=== PATIENT | female | born 1955 | race Two or more races ===

== ENCOUNTER 2025-05-08 17:55 | Emergency (ER) | payer OTHER ==
[~2025-05-08] VITALS: Ht 154.9 cm; Wt 52.2 kg
[2025-05-08] MEDS ORDERED: ARBLI10 MG/1 ML PO (18:32)
[2025-05-08] MEDS ORDERED: METFORMIN HCL500 M3 PO (18:32)
[2025-05-08] MEDS ORDERED: CRESTOR40 MG PO (18:32)
[2025-05-08] MEDS ORDERED: CLOPIDOGREL BISULFATE 75 MG TABLET PO ONE ×2 (18:57→19:00)
[2025-05-08] MEDS ORDERED: METOPROLOL TARTRATE 25 MG TABLET PO ONE ×2 (18:57→19:00)
[2025-05-08] MEDS ORDERED: ASPIRIN 325 MG TABLET.EC PO ONE (19:00)
[2025-05-08 19:24] LABS: BASO % 1.2 % (0.1-1.2); EOS # 0.09 (0.04-0.54); EOS % 1.0 % (0.7-7.0); LYMPH # 1.44 (1.18-3.74); LYMPH % 16.1 % (19.3-53.1); MEAN PLATELET VOLUME 10.00 fl (9.4-12.4); MONO # 0.58 (0.24-0.82); MONO % 6.5 % (4.7-12.5); NEUT # 6.68 (1.56-6.13); NEUT % 75.0 % (34.0-71.1); RED CELL DISTRIBUTION WIDTH 12.7 % (11.6-14.4)
[2025-05-08 19:42] LABS: INR 1.05
[2025-05-08 19:46] LABS: ALT/SGPT 19.0 U/L (12-78); AST/SGOT 18.0 U/L (15-37); BILIRUBIN TOTAL 0.29 mg/dL (0.3-1.2); BUN CREA RATIO 25.0 (7.0-25.0); CHOL HDL RATIO 3.4 (0-5.0); CREATININE SERUM 0.85 mg/dL (0.55-1.02); GFR 65.93; GLOBULINA 3.2 G/DL (2.4-3.5); GLUCOSE FASTING 116.0 mg/dL (65-100); HDL 70.0 mg/dl (40-60); LDL 141.0 mg/dl (0-130); OSMOLALITY SERUM 285.0 MOSM/KG (275-295); VLDL 30.0 (0-39)
== END 2025-05-08 22:09 | disposition home or self-care (01) ==
LOC: ER 17:56
PROVIDERS: Behavior Technician
DX: R07.89 Other chest pain (principal); I20.89 Other forms of angina pectoris; M94.0 Chondrocostal junction syndrome [Tietze]; R07.9 Chest pain, unspecified; I10 Essential (primary) hypertension; E11.9 Type 2 diabetes mellitus without complications; Z79.84 Long term (current) use of oral hypoglycemic drugs